=== PATIENT | male | born 1960 | race Asian ===

== ENCOUNTER 2019-04-10 16:53 | Emergency (ER) | payer OTHER ==
[~2019-04-10] VITALS: Ht 170.2 cm; Wt 72.6 kg
[2019-04-10 16:58] VITALS: BP 133/88
--- NOTE | 2019-04-10 17:03 | NUR ---
PT PLACED IN ER LOBBY FROM [facility] TO WAIT FOR AVAILABLE BED.
[2019-04-10] MEDS ORDERED: SODIUM CHLORIDE FLUSH 10 ML SYR IVF STA (17:05)
[2019-04-10 17:31] LABS: BASOPHILS % (AUTO) 0.5 % (0.0-2.0); EOSINOPHILS # (AUTO) 0.1 K/uL (0-0.4); EOSINOPHILS % (AUTO) 1.7 % (0.0-4.0); HEMATOCRIT 47.6 % (36-52); HEMOGLOBIN 16.1 g/dL (12.0-18.0); LYMPHOCYTES # (AUTO) 1.8 K/uL (2.0-11.5); LYMPHOCYTES % (AUTO) 26.2 % (20.5-51.1); MEAN CORPUSCULAR HEMOGLOBIN 32 pg (27-31); MEAN CORPUSCULAR HGB CONC 34 g/dL (33-37); MEAN CORPUSCULAR VOLUME 95.4 fL (80-94); MONOCYTES # (AUTO) 0.7 K/uL (0.8-1.0); MONOCYTES % (AUTO) 10.4 % (1.7-9.3); NEUTROPHILS # (AUTO) 4.2 K/uL (1.8-7.7); NEUTROPHILS % (AUTO) 61.2 % (42.2-75.2); PLATELET COUNT (AUTO) 300 K/uL (140-450); RED BLOOD CELL COUNT(AUTO) 4.99 MIL/uL (4.20-6.10); RED CELL DISTRIBUTION WIDTH 12.5 % (11.6-13.7); WHITE BLOOD COUNT (AUTO) 6.9 K/uL (4.8-10.8)
[2019-04-10 17:54] LABS: ANION GAP 10.8 (8-16); CARBON DIOXIDE 28.3 mmol/L (21-32); POTASSIUM 4.1 mmol/L (3.5-5.1)
--- NOTE | 2019-04-10 17:57 | NUR ---
PT TAKEN TO BED 8.
--- NOTE | 2019-04-10 17:58 | NUR ---
PT BIBA C/O LLQ PAIN X THIS AM. RATES PAIN 6/10 AND DESCRIBES IT PRESSURE. DENIES ANY FEVER,N,V,D. ABD IS ROUND AND SOFT AND NONTENDER. VSS. PT ALSO SATTES LEFT FLANK PAIN. DENIES ANY DYSURIA, OR BLOOD IN URINE. ALLERGIES: BETA BLOCKERS, AND IODINE. PMH: THYROID REMOVAL, IBS, HTN.
[2019-04-10 18:00] LABS: ALBUMIN 3.6 g/dL (3.4-5.0); TOTAL BILIRUBIN 0.5 mg/dL (0.0-1.0)
[2019-04-10 18:31] LABS: BILIRUBIN,URINE NEGATIVE (NEGATIVE); BLOOD, URINE TRACE-L (NEGATIVE); LEUKOCYTE ESTERASE ,URINE NEGATIVE (NEGATIVE); NITRITE, URINE NEGATIVE (NEGATIVE); UGLUCOSE NEGATIVE (NEGATIVE)
[2019-04-10 18:56] LABS: COLOR,URINE YELLOW (YELLOW); RBC,URINE 0-5 /HPF (0-5); WBC,URINE 0 /HPF (0-5)
[2019-04-10 18:57] LABS: APPEARANCE,URINE CLEAR (CLEAR)
--- NOTE | 2019-04-10 19:04 | NUR ---
TAKEN TO CT VIA WHEELCHAIR.
--- NOTE | 2019-04-10 19:15 | NUR ---
RETURNED FROM CT VIA [facility].
--- NOTE | 2019-04-10 19:18 | NUR ---
Pt report given to JUAN NAQVI. Transfer of care at this time.
[2019-04-10 20:20] VITALS: BP 133/88
--- NOTE | 2019-04-10 20:20 | NUR ---
Patient discharged with v/s stable. Written and verbal after care instructions given and explained. Patient alert, oriented and verbalized understanding of instructions. Ambulatory with steady gait. All questions addressed prior to discharge. ID band removed. Patient advised to follow up with PMD. Opportunity to ask questions provided and answered. DR. HILL DISCHARGED PATIENT
== END 2019-04-10 20:20 | disposition home or self-care (01) ==
LOC: MED 16:53
DX: K30 Functional dyspepsia (principal); I10 Essential (primary) hypertension; Z86.39 Personal history of other endocrine, nutritional and metabolic disease; Z88.8 Allergy status to other drugs, medicaments and biological substances; Z98.890 Other specified postprocedural states
CPT/HCPCS: 36415; 80053; 81001; 83690; 85025; 99284